=== PATIENT | female | born 1965 | race African-American/Black ===

== ENCOUNTER 2023-07-10 07:13 | Day surgery (SDC) | payer OTHER ==
[~2023-07-10] VITALS: Ht 157.5 cm; Wt 61.7 kg
[~2023-07-10 07:13] MED LIST: ATORVASTATIN CA10 MG PO; KEFLEX500 MG PO
[2023-07-10 10:45] VITALS: BP 127/70
== END 2023-07-10 10:43 | disposition home or self-care (01) ==
LOC: ORM 07:13
PROVIDERS: ATTEND Urology
DX: N32.9 Bladder disorder, unspecified (principal); R31.29 Other microscopic hematuria; E78.5 Hyperlipidemia, unspecified; E03.9 Hypothyroidism, unspecified
CPT/HCPCS: J1956

== ENCOUNTER 2024-07-22 06:56 | Day surgery (SDC) | payer OTHER ==
[~2024-07-22] VITALS: Ht 157.5 cm; Wt 65.8 kg
[~2024-07-22 06:56] MED LIST changes: +VITAMIN D-32000 UNI1
[2024-07-22] MEDS ORDERED: LACTATED RINGER'S 1,000 ML IV ONE (06:59)
[2024-07-22 08:22] VITALS: BP 149/97
[2024-07-22] MEDS ORDERED: STERILE WATER FOR IRRIGATION 1,000 ML BTL IR ONE (13:35)
[2024-07-22] MEDS ORDERED: PROPOFOL 200 MG/20 ML VIAL IV ONE (14:18)
[2024-07-22] MEDS ORDERED: GLYCOPYRROLATE 0.2 MG/ML IV ONE (14:18)
[2024-07-22] MEDS ORDERED: LIDOCAINE HCL 2% 2ML SDV IV ONE (14:18)
== END 2024-07-22 08:37 | disposition home or self-care (01) | DRG 951 ==
LOC: ENDO 06:56
PROVIDERS: ATTEND Internal Medicine Gastroenterology
PROC: 0DJD8ZZ Inspection of Lower Intestinal Tract, Via Natural or Artificial Opening Endoscopic (ICD-10-PCS; principal; 2024-07-22)
DX: Z12.11 Encounter for screening for malignant neoplasm of colon (principal); K64.8 Other hemorrhoids